=== PATIENT | female | born 1980 | race American Indian/Alaskan Native ===

== ENCOUNTER 2021-10-07 20:02 | Emergency (ER) | payer MEDICAID ==
[2021-10-07 22:42] LABS: Alanine Aminotransferase 5 units/L (7-56); Albumin 4.3 g/dL (3.9-5); BUN/Creatinine Ratio 16; Blood Urea Nitrogen 13 mg/dL (7-17); Hemolysis Index 0
[2021-10-07 22:57] LABS: Mean Corpuscular HGB Conc 27 % (30-34); Red Blood Count 3.55 M/mm3 (3.65-5.03)
[2021-10-07 23:06] LABS: Hematocrit 18.5 % (30.3-42.9); Mean Corpuscular Volume 52 fl (79-97); Platelet Count 188 K/mm3 (140-440); Red Cell Distribution Width 23.6 % (13.2-15.2)
[2021-10-07 23:46] LABS: Anisocytosis 2+; Basophils % (Manual) 0 % (0.0-1.8); Hypochromasia 3+; Poikilocytosis 1+; Total Cells Counted 100
[2021-10-07 23:47] LABS: Large Platelets Few; Ovalocytes 1+; Platelet Estimate Consistent w Auto; Tear Drop Cells 1+
[2021-10-08] MEDS ORDERED: SODIUM CHLORIDE 0.9% 500 ML 500 ML IV ONE ×2 (04:24→04:59)
--- NOTE | 2021-10-08 05:01 | Emergency Department Report ---
<MOY MARCELINO - Last Filed: 10/08/21 04:55> ED General Adult HPI - General Chief complaint: Recheck/Abnormal Lab/Rx Stated complaint: LOW HEMOGLOBIN Time Seen by Provider: 10/08/21 04:19 Source: EMS Mode of arrival: Stretcher Limitations: No Limitations - History of Present Illness Initial comments: 40-year-old female the past medical history of fibroids and iron deficiency anemia presents to the hospital after being told her hemoglobin was 4.8 by her PMD. Patient was told to come to the ER. Patient does report lightheadedness, dizziness with exertion and fatigue. History of requiring blood transfusion in the past. Patient has heavy menstrual cycles and ended her cycle on September. She also has been noncompliant with iron tablets for the past 4 to 5 months - Related Data Previous Rx's Medication Instructions Recorded Last Taken Type Ferrous Sulfate [Ferrous Sulfate 324 mg PO DAILY #30 tab 10/08/21 Unknown Rx 324 MG] Allergies Allergy/AdvReac Type Severity Reaction Status Date / Time No Known Allergies Allergy Unverified 10/07/21 21:37 ED Past Medical Hx - Medications Home Medications: Home Medications Medication Instructions Recorded Confirmed Last Taken Type Ferrous Sulfate [Ferrous Sulfate 324 mg PO DAILY #30 tab 10/08/21 Unknown Rx 324 MG] ED Physical Exam - General Limitations: No Limitations ED Medical Decision Making - Lab Data Result diagrams: 10/07/21 21:45 10/07/21 21:45 Lab Results 10/07/21 10/07/21 10/07/21 Range/Units 21:45 21:45 21:45 WBC 7.8 (4.5-11.0) K/mm3 RBC 3.55 L (3.65-5.03) M/mm3 Hgb 5.0 L* (10.1-14.3) gm/dl Hct 18.5 L* (30.3-42.9) % MCV 52 L (79-97) fl MCH 14 L (28-32) pg MCHC 27 L (30-34) % RDW 23.6 H (13.2-15.2) % Plt Count 188 (140-440) K/mm3 Add Manual Diff Complete Total Counted 100 Seg Neuts % (Manual) 70.0 (40.0-70.0) % Band Neutrophils % 0 % Lymphocytes % (Manual) 18.0 (13.4-35.0) % Reactive Lymphs % (Man) 0 % Monocytes % (Manual) 9.0 H (0.0-7.3) % Eosinophils % (Manual) 3.0 (0.0-4.3) % Basophils % (Manual) 0 (0.0-1.8) % Metamyelocytes % 0 % Myelocytes % 0 % Promyelocytes % 0 % Blast Cells % 0 % Nucleated RBC % Not Reportable Seg Neutrophils # Man 5.5 (1.8-7.7) K/mm3 Band Neutrophils # 0.0 K/mm3 Lymphocytes # (Manual) 1.4 (1.2-5.4) K/mm3 Abs React Lymphs (Man) 0.0 K/mm3 Monocytes # (Manual) 0.7 (0.0-0.8) K/mm3 Eosinophils # (Manual) 0.2 (0.0-0.4) K/mm3 Basophils # (Manual) 0.0 (0.0-0.1) K/mm3 Metamyelocytes # 0.0 K/mm3 Myelocytes # 0.0 K/mm3 Promyelocytes # 0.0 K/mm3 Blast Cells # 0.0 K/mm3 WBC Morphology Not Reportable Hypersegmented Neuts Not Reportable Hyposegmented Neuts Not Reportable Hypogranular Neuts Not Reportable Smudge Cells Not Reportable Toxic Granulation Not Reportable Toxic Vacuolation Not Reportable Dohle Bodies Not Reportable Pelger-Huet Anomaly Not Reportable Abram Rods Not Reportable Platelet Estimate Consistent w auto Clumped Platelets Not Reportable Plt Clumps, EDTA Not Reportable Large Platelets Few Giant Platelets Not Reportable Platelet Satelliting Not Reportable Plt Morphology Comment Not Reportable RBC Morphology Not Reportable Dimorphic RBCs Not Reportable Polychromasia Not Reportable Hypochromasia 3+ Poikilocytosis 1+ Anisocytosis 2+ Microcytosis 1+ Macrocytosis Not Reportable Spherocytes Not Reportable Pappenheimer Bodies Not Reportable Sickle Cells Not Reportable Target Cells Not Reportable Tear Drop Cells 1+ Ovalocytes 1+ Helmet Cells Not Reportable Head-Evart Bodies Not Reportable [place] Rings Not Reportable Diane Cells Not Reportable Bite Cells Not Reportable Crenated Cell Not Reportable Elliptocytes Few Acanthocytes (Spur) Not Reportable Rouleaux Not Reportable Hemoglobin C Crystals Not Reportable Schistocytes Not Reportable Malaria parasites Not Reportable Tk Bodies Not Reportable Hem Pathologist Commnt No Sodium 137 (137-145) mmol/L Potassium 4.3 (3.6-5.0) mmol/L Chloride 102.4 (98-107) mmol/L Carbon Dioxide 24 (22-30) mmol/L Anion Gap 15 mmol/L BUN 13 (7-17) mg/dL Creatinine 0.8 (0.6-1.2) mg/dL Estimated GFR > 60 ml/min BUN/Creatinine Ratio 16 % Glucose 197 H (65-100) mg/dL Calcium 9.0 (8.4-10.2) mg/dL Total Bilirubin 0.20 (0.1-1.2) mg/dL AST 9 (5-40) units/L ALT 5 L (7-56) units/L Alkaline Phosphatase 94 (35-129) units/L Total Protein 7.2 (6.3-8.2) g/dL Albumin 4.3 (3.9-5) g/dL Albumin/Globulin Ratio 1.5 % HCG, Quant < 2 (0-4) mIU/mL - Medical Decision Making 40-year-old female with history of anemia requiring blood transfusion secondary to acute blood loss/fibroids and iron deficiency presents to the hospital symptomatic anemia. Hemoglobin is 5. 2 units of PRBCs ordered. Patient does not have active bleeding. Plan to discharge after transfusion complete. Iron tablets will be prescribed. [email or web address] F[facility] Critical Care Time: No ED Disposition Clinical Impression: Symptomatic anemia Iron deficiency anemia Qualifiers: Iron deficiency anemia type: chronic blood loss Qualified Code(s): D50.0 - Iron deficiency anemia secondary to blood loss (chronic) Disposition: HOME / SELF CARE / HOMELESS Is pt being admited?: No Does the pt Need Aspirin: No Condition: Stable Instructions: Preventing Iron Deficiency Anemia, Adult, Blood Transfusion, Adult, Care After, [id number] Additional Instructions: Take the medication as prescribed. Follow-up with your doctor or doctor/clinic provided. Return if symptoms worsen as indicated by your discharge instructions. Prescriptions: Ferrous Sulfate [Ferrous Sulfate 324 MG] 324 mg PO DAILY #30 tab Referrals: PRIMARY CARE, [Primary Care Provider] - 3-5 Days <JORJE FUNES - Last Filed: 10/08/21 12:20> ED Review of Systems ROS: Stated complaint: LOW HEMOGLOBIN Other details as noted in HPI ED Course Vital Signs 10/07/21 10/08/21 10/08/21 21:35 06:00 06:39 Temperature 98.1 F 98.2 F Pulse Rate 96 H 91 H Respiratory 16 10 L Rate Blood Pressure 128/62 Blood Pressure 132/66 [Right] O2 Sat by Pulse 99 100 100 Oximetry 10/08/21 10/08/21 10/08/21 06:45 06:48 06:57 Temperature 98.2 F 98.2 F 98.2 F Pulse Rate 89 95 H 100 H Respiratory 11 L 14 12 Rate Blood Pressure 128/62 149/80 Blood Pressure 128/62 [Right] O2 Sat by Pulse 100 100 87 Oximetry 10/08/21 10/08/21 10/08/21 07:10 07:26 07:55 Temperature 98.3 F 98.2 F 98.3 F Pulse Rate 92 H 85 88 Respiratory 16 16 14 Rate Blood Pressure 149/80 135/68 137/79 Blood Pressure [Right] O2 Sat by Pulse 99 100 99 Oximetry 10/08/21 10/08/21 10/08/21 09:30 09:45 10:15 Temperature 98.2 F 98.1 F 98.2 F Pulse Rate 81 83 79 Respiratory 18 14 14 Rate Blood Pressure 127/78 127/78 128/75 Blood Pressure [Right] O2 Sat by Pulse 100 100 100 Oximetry 10/08/21 10/08/21 10:45 11:00 Temperature 98.4 F Pulse Rate 79 82 Respiratory 14 16 Rate Blood Pressure 127/77 124/71 Blood Pressure [Right] O2 Sat by Pulse 100 100 Oximetry - Reevaluation(s) Reevaluation #1: 10/08/21 12:18 Pt feeling much better after the 2nd rbc transfusion-- and did not develop any transfusion reaction during or shortly after transfusion-- pt monitored to normal with stable vitals and with on acute distress and stable to be discharged home to close followup with her An/Sqq [id number] [employer]-- ED Medical Decision Making - Lab Data Result diagrams: 10/07/21 21:45 10/07/21 21:45 Critical care attestation.: If time is entered above; I have spent that time in minutes in the direct care of this critically ill patient, excluding procedure time. ED Disposition Is pt being admited?: No Does the pt Need Aspirin: No Time of Disposition: 12:18
[2021-10-08 11:01] VITALS: BP 124/71
== END 2021-10-08 12:18 | disposition home or self-care (01) ==
LOC: ED 20:02
DX: D50.9 Iron deficiency anemia, unspecified (principal)
CPT/HCPCS: 36415; 36430; 80053; 84702; 85007; 85025; 86850; 86900; 86901; 86920; 99283; J7040; P9016; 99282